=== PATIENT | male | born 1960 | race Caucasian/White ===

== ENCOUNTER 2024-05-13 03:18 | Emergency (ER) | payer OTHER ==
[2024-05-13 03:29] VITALS: BP 146/90; PULSE 53; RESP 20; TEMP 97.9; BMI 28.1
[2024-05-13] MEDS ORDERED: predniSONE 20 MG TABLET (UD) ONE (04:22)
[2024-05-13] MEDS ORDERED: diphenhydrAMINE HCL 25 MG CAPSULE (FP) PO ONE (04:22)
[2024-05-13] MEDS ORDERED: FAMOTIDINE 20 MG TABLET ONE (04:23)
[2024-05-13] MEDS: diphenhydrAMINE HCL 50 MG CAPSULE PO ONE (04:24)
[2024-05-13] MEDS: FAMOTIDINE 20 MG TABLET PO ONE (04:25)
[2024-05-13] MEDS: predniSONE 20 MG TABLET (UD) PO ONE (04:25)
== END 2024-05-13 04:56 | disposition home or self-care (01) ==
LOC: JER 03:18
DX: L50.0 Allergic urticaria (principal)
CPT/HCPCS: 99283-25